=== PATIENT | female | born 1995 | race American Indian/Alaskan Native ===

== ENCOUNTER 2017-09-25 22:27 | Emergency (ER) | payer MEDICAID ==
[2017-09-25 22:34] VITALS: BP 120/72
[2017-09-25] MEDS ORDERED: FUL-GLO OP ONE ×2 (23:41→23:43)
[2017-09-25] MEDS ORDERED: TETRACAINE 0.5% ONE (23:41)
[2017-09-25] MEDS ORDERED: TORADOL IM ONE (23:49)
[2017-09-25] MEDS ORDERED: TETRACAINE 0.5% OS ONE (23:50)
--- NOTE | 2017-09-25 23:53 | Emergency Department Report ---
ED Eye Problem HPI - General Chief complaint: Eye Problems Stated complaint: EYE PAIN Time Seen by Provider: 09/25/17 23:48 Source: patient Mode of arrival: Ambulatory Limitations: No Limitations - History of Present Illness Initial comments: 22 yo female c/o son scratching her left eye 3o minutes prior to arrival MD chief complaint: eye pain, eye redness, eye injury, vision change (blurred) -: Sudden, hour(s) (.5) Onset Description: sudden Location: left eye Place: home If Injury: direct trauma Eye Symptoms: burning, redness, pain, discharge, decreased vision, blurry vision , photophobia Severity scale (0 -10): 5 If Pain, Quality: burning, throbbing Consistency: constant Context: trauma Associated Symptoms: none Treatments Prior to Arrival: none - Related Data Previous Rx's Medication Instructions Recorded Last Taken Type Erythromycin [Erythromycin Ophth 10 applic OP QID #1 tube 09/25/17 Unknown Rx Oint] Allergies Allergy/AdvReac Type Severity Reaction Status Date / Time No Known Allergies Allergy Verified 09/25/17 23:44 ED Review of Systems ROS: Stated complaint: EYE PAIN Other details as noted in HPI Constitutional: denies: chills, fever Eyes: denies: eye pain, eye discharge, vision change ENT: denies: ear pain, throat pain Respiratory: denies: cough, shortness of breath, wheezing Cardiovascular: denies: chest pain, palpitations Endocrine: no symptoms reported Gastrointestinal: denies: abdominal pain, nausea, diarrhea Genitourinary: denies: urgency, dysuria, discharge Musculoskeletal: denies: back pain, joint swelling, arthralgia Skin: denies: rash, lesions Neurological: denies: headache, weakness, paresthesias Psychiatric: denies: anxiety, depression Hematological/Lymphatic: denies: easy bleeding, easy bruising ED Past Medical Hx - Past Medical History Hx Arthritis: Yes (RA) Hx Asthma: Yes Additional medical history: fibromyalgia, psoriasis - Surgical History Additional Surgical History: D&C - Social History Smoking Status: Never Smoker Substance Use Type: None - Medications Home Medications: Home Medications Medication Instructions Recorded Confirmed Last Taken Type Erythromycin [Erythromycin Ophth 10 applic OP QID #1 tube 09/25/17 Unknown Rx Oint] ED Physical Exam - General Limitations: No Limitations General appearance: alert, in distress - Head Head exam: Present: atraumatic, normocephalic - Eye Eye exam: Present: normal appearance, EOMI, conjunctival injection, other ( corneal abrasion at 5 oclock in left eye) - ENT ENT exam: Present: mucous membranes moist - Neck Neck exam: Present: normal inspection - Respiratory Respiratory exam: Present: normal lung sounds bilaterally. Absent: respiratory distress - Cardiovascular Cardiovascular Exam: Present: regular rate, normal rhythm. Absent: systolic murmur, diastolic murmur, rubs, gallop - GI/Abdominal GI/Abdominal exam: Present: soft, normal bowel sounds - Extremities Exam Extremities exam: Present: normal inspection - Back Exam Back exam: Present: normal inspection - Neurological Exam Neurological exam: Present: alert, oriented X3 - Psychiatric Psychiatric exam: Present: normal affect, normal mood - Skin Skin exam: Present: warm, dry, intact, normal color. Absent: rash ED Course Vital Signs 09/25/17 22:31 Temperature 98.5 F Pulse Rate 84 Respiratory 18 Rate Blood Pressure 120/72 O2 Sat by Pulse 97 Oximetry - Eye Procedure Alcaine Drops Administered: Yes (tetracaine) Eye FB Removal: other (fluorosceine stain) Cyclogel 2 Drops Administered: left eye Critical care attestation.: If time is entered above; I have spent that time in minutes in the direct care of this critically ill patient, excluding procedure time. ED Disposition Clinical Impression: Corneal abrasion, left Qualifiers: Encounter type: initial encounter Qualified Code(s): S05.02XA - Injury of conjunctiva and corneal abrasion without foreign body, left eye, initial encounter Disposition: - TO HOME OR SELFCARE Is pt being admited?: No Does the pt Need Aspirin: No Condition: Stable Instructions: Corneal Abrasion (ED) Prescriptions: Erythromycin [Erythromycin Ophth Oint] 10 applic OP QID #1 tube Referrals: PRIMARY CAREMD [Primary Care Provider] - 3-5 Days ONEAL SINGH MD [Staff Physician] - 3-5 Days LUIZ DEL ANGEL MD [Staff Physician] - 3-5 Days HOUSTON CHEEK MD [Staff Physician] - 3-5 Days Time of Disposition: 23:56
== END 2017-09-26 00:20 | disposition home or self-care (01) ==
LOC: ED 22:27
DX: S05.02XA Injury of conjunctiva and corneal abrasion without foreign body, left eye, initial encounter (principal); J45.909 Unspecified asthma, uncomplicated; W50.4XXA Accidental scratch by another person, initial encounter; Y93.89 Activity, other specified; Y92.89 Other specified places as the place of occurrence of the external cause; Y99.8 Other external cause status
CPT/HCPCS: 96372; 99283; J1885